=== PATIENT | female | born 1955 | race Asian ===

== ENCOUNTER 2025-03-18 13:41 | Inpatient (IN) | payer MEDICARE, OTHER ==
[~2025-03-18] VITALS: Ht 157.5 cm; Wt 61.7 kg
[2025-03-18 13:52] VITALS: BP 135/89
[2025-03-18 14:08] LABS: PLATELET COUNT (AUTO) 328 K/uL (179-408); RED BLOOD CELL COUNT(AUTO) 3.80 MIL/uL (3.63-4.92); RED CELL DISTRIBUTION WIDTH 19.6 % (12.3-17.7); WHITE BLOOD COUNT (AUTO) 7.8 K/uL (3.8-11.8)
[2025-03-18 14:16] LABS: CREATININE 0.8 mg/dL (0.6-1.3); SODIUM SERUM 135 mmol/L (136-145); UREA NITROGEN, BLOOD 19 mg/dL (7-18)
[2025-03-18 14:22] LABS: ASPARTATE AMINOTRANSFERASE 29 U/L (15-37); TOTAL PROTEIN, SERUM 7.4 g/dL (6.4-8.2)
[2025-03-18] MEDS ORDERED: DILTIAZEM HCL 25 MG IV ONE ×2 (14:48→14:49)
[2025-03-18] MEDS: IV NORMAL SALINE 1000 ML BAG IV ONE (14:50)
[2025-03-18] MEDS: DILTIAZEM HCL 25 MG IV IV ONE (14:58)
[2025-03-18] MEDS ORDERED: OXYB15TA19 PO (16:10)
[2025-03-18] MEDS ORDERED: PANT40TA49 PO (16:10)
[2025-03-18] MEDS ORDERED: METO25TA6 PO (16:10)
[2025-03-18] MEDS ORDERED: ASPI81TA49 PO (16:10)
[2025-03-18] MEDS ORDERED: WARF-68 PO (16:10)
[2025-03-18] MEDS ORDERED: METO-357 PO (16:10)
[2025-03-18] MEDS ORDERED: ROSU10TA2 PO (16:10)
[2025-03-18] MEDS ORDERED: DULO40CA2 PO (16:10)
[2025-03-18] MEDS ORDERED: TEMA30CA PO (16:10)
[2025-03-18] MEDS ORDERED: POTA-366 PO (16:10)
[2025-03-18] MEDS ORDERED: FURO80TA3 PO (16:10)
[2025-03-18] MEDS ORDERED: DOCU250C14 PO (16:10)
[2025-03-18] MEDS ORDERED: DULO30CA52 PO (17:44)
[2025-03-18] MEDS ORDERED: FURO40TA5 PO (17:44)
[2025-03-18 18:11] VITALS: BP 131/86; TEMP 98.4; O2SAT 98
[2025-03-18] MEDS ORDERED: MAGNESIUM HYDROXIDE 30 ML LIQUID UDC PO PRN (18:30)
[2025-03-18] MEDS ORDERED: ONDANSETRON 4 MG/2 ML VIAL IV PRN (18:30)
[2025-03-18] MEDS ORDERED: REMEDY ESSENTIAL ZINC PASTE 113 GM TP PRN (18:30)
[2025-03-18 19:15] VITALS: BP 160/76; TEMP 97.6; O2SAT 96
[2025-03-18] MEDS: FUROSEMIDE 40 MG/4 ML VIAL IV SCH (20:20)
[2025-03-18] MEDS ORDERED: TEMAZEPAM 15 MG CAPSULE PO PRN (20:30)
[2025-03-18] MEDS: METOPROLOL TARTRATE 25 MG TABLET PO SCH (21:00)
[2025-03-18] MEDS: ATORVASTATIN 20 MG TABLET PO SCH (21:02)
[2025-03-18] MEDS: OXYBUTYNIN XL 5 MG TABSR PO SCH (21:02)
[2025-03-19] VITALS (9 sets, daily range): BP systolic 106–143; BP diastolic 53–89; TEMP 97–98.3; O2SAT 92–98
[2025-03-19] MEDS: ACETAMINOPHEN 325 MG TABLET PO PRN (00:13)
[2025-03-19] MEDS: PANTOPRAZOLE SODIUM 40 MG TABLET.DR PO SCH (06:37)
[2025-03-19 07:34] LABS: PLATELET COUNT (AUTO) 292 K/uL (179-408); RED BLOOD CELL COUNT(AUTO) 3.54 MIL/uL (3.63-4.92); RED CELL DISTRIBUTION WIDTH 19.3 % (12.3-17.7); WHITE BLOOD COUNT (AUTO) 6.9 K/uL (3.8-11.8)
[2025-03-19 07:48] LABS: CREATININE 0.9 mg/dL (0.6-1.3); SODIUM SERUM 139.0 mmol/L (136-145); UREA NITROGEN, BLOOD 18.0 mg/dL (7-18)
[2025-03-19] MEDS: DOCUSATE SODIUM 250 MG CAPSULE PO SCH (08:37)
[2025-03-19] MEDS: DULOXETINE 30 MG CAPSULE.DR PO SCH (08:37)
[2025-03-19] MEDS: ASPIRIN EC 81 MG TABLET.DR PO SCH (08:37)
[2025-03-19] MEDS: FUROSEMIDE 40 MG TABLET PO ONE (10:19)
[2025-03-19] MEDS ORDERED: DEXTROSE 50% 50 ML DISP.SYRIN IV PRN (12:15)
[2025-03-19] MEDS: BLOOD SUGAR DIAGNOSTIC 1 EACH STRIP VI SCH (12:37)
[2025-03-19] MEDS: INSULIN REGULAR, HUMAN 1000 UNIT/10 ML VIAL SQ PRN (12:39)
[2025-03-19] MEDS ORDERED: METOPROLOL TARTRATE 25 MG TABLET PO SCH (17:00)
[2025-03-19] MEDS ORDERED: WARFARIN SODIUM 2 MG TABLET PO SCH (17:00)
[2025-03-19] MEDS: TEMAZEPAM 15 MG CAPSULE PO PRN (21:11)
[2025-03-19] MEDS: METOPROLOL TARTRATE 50 MG TABLET PO SCH (21:12)
[2025-03-19] MEDS ORDERED: POLYVINYL ALCOHOL OPHT DROPS 15 ML BOTTLE ONE (21:52)
[2025-03-19] MEDS: POLYVINYL ALCOHOL OPHT DROPS 15 ML BOTTLE EACHEYE PRN (22:16)
[2025-03-20] VITALS (7 sets, daily range): BP systolic 113–161; BP diastolic 62–86; TEMP 97.6–98.5; O2SAT 92–100
[2025-03-20] MEDS: FUROSEMIDE 40 MG/4 ML VIAL IV SCH (08:41)
[2025-03-20] MEDS: prednisoLONE ACET 1% OPHT DROP 5 ML BOTTLE RIGHTEYE SCH (16:16)
[2025-03-20] MEDS: KETOROLAC 0.5% OPHT DROP 3 ML BOTTLE EACHEYE SCH (16:16)
[2025-03-20] MEDS: METOPROLOL TARTRATE 50 MG TABLET PO SCH (20:49)
[2025-03-21] VITALS (9 sets, daily range): BP systolic 120–149; BP diastolic 69–92; TEMP 97.6–98.6; O2SAT 97–100
[2025-03-21 08:07] LABS: CREATININE 0.9 mg/dL (0.6-1.3); SODIUM SERUM 138.0 mmol/L (136-145); UREA NITROGEN, BLOOD 19.0 mg/dL (7-18)
[2025-03-21] MEDS ORDERED: LIDOCAINE 5% PATCH TD SCH (23:15)
[2025-03-21] MEDS: LIDOCAINE 5% PATCH TD PRN (23:30)
[2025-03-22] VITALS (7 sets, daily range): BP systolic 128–143; BP diastolic 70–95; TEMP 97.5–98; O2SAT 92–98
[2025-03-22] MEDS ORDERED: METO50TA16 PO (12:22)
[2025-03-22] MEDS ORDERED: WARF1TAB2 PO (12:22)
[2025-03-22] MEDS ORDERED: BUME2TAB7 PO (12:22)
[2025-03-22] MEDS: WARFARIN SODIUM 2 MG TABLET PO SCH (16:05)
== END 2025-03-22 19:15 | disposition home or self-care (01) | DRG 291 ==
LOC: ER 13:41 → TELE3 17:22
PROC: 05HC33Z Insertion of Infusion Device into Left Basilic Vein, Percutaneous Approach (ICD-10-PCS; principal; 2025-03-19)
DX: I11.0 Hypertensive heart disease with heart failure (principal); I50.43 Acute on chronic combined systolic (congestive) and diastolic (congestive) heart failure; D68.9 Coagulation defect, unspecified; Z79.01 Long term (current) use of anticoagulants; T45.515A Adverse effect of anticoagulants, initial encounter; I69.354 Hemiplegia and hemiparesis following cerebral infarction affecting left non-dominant side; Z95.2 Presence of prosthetic heart valve; E11.65 Type 2 diabetes mellitus with hyperglycemia; I48.20 Chronic atrial fibrillation, unspecified; I69.320 Aphasia following cerebral infarction; Y92.009 Unspecified place in unspecified non-institutional (private) residence as the place of occurrence of the external cause; E78.5 Hyperlipidemia, unspecified; I42.9 Cardiomyopathy, unspecified; Z79.899 Other long term (current) drug therapy; Z79.82 Long term (current) use of aspirin; I07.1 Rheumatic tricuspid insufficiency; R53.1 Weakness
CPT/HCPCS: 36415; 70450; 71045; 83735; 84100; 84443; 84484; 85025; 85610; 93005; 93307; 94760; G0378; J1815; J1938; J2650; J3490; J7040